=== PATIENT | male | born 1960 | race Two or more races ===

== ENCOUNTER 2017-02-16 23:40 | Emergency (ER) | payer SELFPAY ==
[~2017-02-16] VITALS: Ht 154.9 cm; Wt 63.5 kg
[2017-02-17] VITALS: BP 131/95
[2017-02-17 01:30] VITALS: BP 128/79
[2017-02-17] MEDS ORDERED: IBUPROFEN600 MG ORAL (01:36)
--- NOTE | 2017-02-17 01:37 | Emergency Room Report ---
History of Present Illness General Chief Complaint: Upper Extremity Injury Source: Patient, EMS Present Illness HPI Is a 56-year-old male who is right-hand dominant. He is also an alcoholic. He drinks every day. He said he fell 5 days ago. Now complaining of left arm pain. It starts from the wrist and radiating up. No other injury. Did not pass out. Worse with movement. No nausea no vomiting. He came by EMS. Pain is 7/10. Allergies: Coded Allergies: No Known Allergies (Unverified , 02/16/17) Patient History Past Medical History: none Past Surgical History: none Pertinent Family History: none Social History: Reports: alcohol use, Denies: smoking Immunizations: UTD Reviewed Nursing Documentation: PMH: Agreed, PSxH: Agreed Nursing Documentation-PMH Hx Hypertension: Yes Review of Systems Eye: Denies: blurred vision, eye pain ENT: Denies: ear pain, nose congestion, throat swelling Respiratory: Denies: cough, shortness of breath Cardiovascular: Denies: chest pain, palpitations Gastrointestinal: Denies: abdominal pain, diarrhea, nausea, vomiting Musculoskeletal: Reports: joint pain, Denies: back pain Skin: Denies: rash Neurological: Denies: headache, numbness Endocrine: Denies: increased thirst, increased urine Hematologic/Lymphatic: Denies: easy bruising All Other Systems: negative except mentioned in HPI Physical Exam Vital Signs Date Time Temp Pulse Resp B/P Pulse Ox O2 Delivery O2 Flow Rate FiO2 02/16/17 23:34 102 18 133/97 96 vitals normal. Sp02 EP Interpretation: reviewed, normal General Appearance: well appearing, no apparent distress, alert Head: normocephalic, atraumatic Eyes: bilateral eye EOMI, bilateral eye PERRL ENT: hearing grossly normal, normal pharynx Neck: full range of motion, supple, no meningismus Respiratory: chest non-tender, lungs clear, normal breath sounds Cardiovascular #1: regular rate, rhythm, no murmur Gastrointestinal: normal bowel sounds, non tender, no mass, no organomegaly, no bruit, non-distended Musculoskeletal: back normal, gait/station normal, other - left wrist with edema and TTP distally. NVI Psychiatric: mood/affect normal Skin: warm/dry Procedures Splinting Splinting : Consent: Verbal Location: left wrist Splint: volar Pre-Proc Neuro Vasc Exam: normal Post-Proc Neuro Vasc Exam: normal Patient Tolerated: Well Complications: None Medical Decision Making Diagnostic Impression: Primary Impression: Closed fracture of distal end of left ulna Qualified Codes: S52.602A - Unspecified fracture of lower end of left ulna, initial encounter for closed fracture Additional Impression: Alcohol abuse ER Course She presents with a fall and the distal ulnar fracture. No evidence of dislocation. No evidence of displacement. Patient splinted. We'll discharge home. He does not want any pain medication. Other X-Ray Diagnostic Results Other X-Ray Diagnostic Results : X-Ray Ordered: Left wrist x-rays Date: February 17, 2017 Time: 01:36 EP Interpretation: Yes Findings: no dislocation, other - Distal ulnar fracture. Last Vital Signs Date Time Temp Pulse Resp B/P Pulse Ox O2 Delivery O2 Flow Rate FiO2 02/16/17 23:34 102 18 133/97 96 Status: improved Disposition: HOME, SELF-CARE Condition: Stable Scripts Ibuprofen* (MOTRIN*) 600 Mg Tablet 600 MG ORAL THREE TIMES A DAY, #30 TAB 0 Refills Prov: EKATERINA LÓPEZ M.D. 02/17/17 Referrals: NOT CHOSEN [facility]/,REFERRING (PCP) Patient Instructions: FRACTURE, Upper Extremity Additional Instructions: Followup with your DrSkinny within 7 days for referral to see an orthopedic Dr. Return if symptom worsen. No PE use of right hand until cleared orthopedic EKATERINA Swann M.D. February 17, 2017 01:37
[2017-02-17 01:45] VITALS: BP 128/79
--- NOTE | 2017-02-17 08:28 | Diagnostic Imaging Report ---
Indications: Fall, left wrist injury and pain Technique: 3 views left wrist Findings: Comparison: None Suboptimal positioning limits evaluation. There is a transverse fracture through the distal ulnar metadiaphyseal junction with mild ulnar angulation. Adjacent periosteal callus formation and soft tissue swelling are present. Fracture does not obviously extend to the distal articular surface. No additional fracture, dislocation, joint space widening, soft tissue gas or foreign body, or other acute change identified. IMPRESSION: Distal ulnar fracture as described with partial healing
== END 2017-02-17 01:45 | disposition home or self-care (01) ==
LOC: EDBD 23:40 → EMR 02-17 00:08
DX: S52.602A Unspecified fracture of lower end of left ulna, initial encounter for closed fracture (principal); F10.10 Alcohol abuse, uncomplicated; I10 Essential (primary) hypertension; W19.XXXA Unspecified fall, initial encounter; Y93.9 Activity, unspecified; Y92.9 Unspecified place or not applicable
CPT/HCPCS: 29260; 99283

== ENCOUNTER 2017-05-19 20:54 | Emergency (ER) | payer SELFPAY ==
[~2017-05-19] VITALS: Ht 167.6 cm; Wt 59.0 kg
[~2017-05-19 20:54] MED LIST: IBUPROFEN600 MG ORAL
--- NOTE | 2017-05-19 21:11 | Emergency Room Report ---
History of Present Illness General Chief Complaint: Multiple Trauma/Fall Source: Patient Present Illness HPI This is a 56-year-old male who presented after increased facial pain after a fall. Patient reported having injury to his face. He stated he was drinking alcohol earlier in the day. History is limited by patient's mental status. Allergies: Coded Allergies: No Known Allergies (Unverified , 02/16/17) Patient History Past Medical History: see triage record Reviewed Nursing Documentation: PMH: Agreed, PSxH: Agreed Nursing Documentation-PMH Past Medical History: No Stated History Hx Hypertension: Yes Review of Systems All Other Systems: negative except mentioned in HPI Physical Exam Vital Signs Date Time Temp Pulse Resp B/P Pulse Ox O2 Delivery O2 Flow Rate FiO2 05/19/17 20:51 97.5 65 16 98 Room Air General Appearance: well appearing, no apparent distress, alert, GCS 15, Chronically Ill Head: other - forehead abrasion ENT: other - lip swelling, superficial laceration, upper teeth missing, no active bleeding to laceration Neck: normal inspection Respiratory: normal inspection, chest non-tender, lungs clear Cardiovascular #1: normal inspection, regular rate, rhythm Gastrointestinal: normal inspection, normal bowel sounds, non tender, soft Musculoskeletal: normal inspection, back normal Neurologic: normal inspection, alert, oriented x3, responsive, 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 Differential diagnosis included was not limited to neck fracture, CVA, close head injury, syncopal episode, basilar ischemia. CT of the head was ordered due to patient's recent trauma. A CT the head showed atrophic changes. There is no evident fracture or hemorrhage. X- ray of the left upper extremity had 2 view interpreted by me showed a healing fracture to the distal ulna. The patient was noted to have increased pain is given Tylenol. The patient given a tetanus vaccine. antibiotic ointment was applied to the patient's abrasions laceration to the face. Last Vital Signs Date Time Temp Pulse Resp B/P Pulse Ox O2 Delivery O2 Flow Rate FiO2 05/19/17 20:51 97.5 65 16 98 Room Air Status: improved Disposition: HOME, SELF-CARE Condition: Stable Ky Guadarrama May 19, 2017 21:11
[2017-05-19] MEDS ORDERED: Tetanus/Diptheria/Pertussis Vaccine 0.5ml Syr IM ONE (21:15)
[2017-05-19 22:25] VITALS: BP 130/70
[2017-05-20] MEDS ORDERED: Bacitracin Oint UD TOPIC ONE (00:30)
[2017-05-20 02:29] VITALS: BP 126/71
[2017-05-20] MEDS ORDERED: LORazepam 1mg tab ORAL ONE (03:00)
[2017-05-20 06:10] VITALS: BP 114/82
[2017-05-20] MEDS ORDERED: Thiamine HCl 100 MG in D5W 55 ML IVPB ONE (06:15)
[2017-05-20] MEDS ORDERED: Thiamine HCl 100mg/ml 2 ml Inj ONE (06:23)
[2017-05-20 07:05] LABS: MEAN CORPUSCULAR VOLUME 106 FL (80-99); MEAN PLATELET VOLUME 6.3 FL (6.5-10.1); PLATELET COUNT 71 K/UL (150-450); RED BLOOD COUNT 2.99 M/UL (4.70-6.10); RED CELL DISTRIBUTION WIDTH 15.9 % (11.6-14.8); WHITE BLOOD COUNT 5.3 K/UL (4.8-10.8)
[2017-05-20 07:10] LABS: ALANINE AMINOTRANSFERASE 12 U/L (3-41); ALBUMIN/GLOBULIN RATIO 0.7 (1.0-2.7); ANION GAP 11 (5-15); ASPARTATE AMINO TRANSFERASE 50 U/L (5-40); CALCIUM 8.2 mg/dL (8.6-10.2); CARBON DIOXIDE 25 mEQ/L (20-30); CHLORIDE 106 mEQ/L (98-107); CREATININE 0.4 mg/dL (0.7-1.2); GLOMERULAR FILTRATION RATE > 60 mL/min (>60); HEMOLYSIS 3; SODIUM 142 mEQ/L (135-145); TOTAL PROTEIN 6.8 g/dL (6.6-8.7)
[2017-05-20 07:22] LABS: BILIRUBIN,DIRECT 1.1 mg/dL (0.1-0.3)
[2017-05-20] MEDS ORDERED: chlordiazePOXIDE 25mg Cap ORAL ONE (07:30)
[2017-05-20 07:52] LABS: BAND NEUTROPHILS % (MANUAL) 0 % (0-8); BASOPHILS % (MANUAL) 0 % (0-2); EOSINOPHILS % (MANUAL) 0 % (0-3); HYPOCHROMASIA 1+; LYMPHOCYTES % (MANUAL) 48 % (20-45); NEUTROPHILS % (MANUAL) 44 % (45-75); PLATELET ESTIMATE DECREASED; PLATELET MORPHOLOGY NORMAL; TEAR DROP CELLS 1+; TOTAL CELLS COUNTED 100
[2017-05-20 07:53] LABS: ANISOCYTOSIS 1+; SCHISTOCYTES 1+; TARGET CELLS 1+
--- NOTE | 2017-05-20 09:15 | Diagnostic Imaging Report ---
Indication: Left forearm pain Technique: XRAY FOREARM 2 VIEWS LEFT Comparison: None Findings: There is a chronic appearing fracture of the distal ulna. There is osteopenia. Soft tissues are grossly unremarkable. Examination is not optimized for evaluation of the elbow or wrist. Impression: Chronic appearing distal ulnar fracture. Clinical correlation recommended. Osteopenia.
[2017-05-20 09:38] VITALS: BP 123/83
--- NOTE | 2017-05-20 09:38 | Diagnostic Imaging Report ---
Indication: Facial pain Technique: CT maxillofacial was performed utilizing automated exposure control without intravenous contrast material. Axial and coronal images were generated. CT dose: Total DLP 577 mGycm; CTDI vol 28.2 mGy Comparison: None Findings: There is no displaced fracture. The orbits appear intact. There is no mandibular fracture. Pterygoid plates are intact. There is mild mucosal thickening of the left maxillary sinus. No paranasal sinus air-fluid levels are identified. Dental disease is noted with multiple dental caries and periapical lucency suggestive of endobronchial disease. Left anterior maxillary alveolar ridge 1.8 cm expansile cystic lesion is seen with an air-fluid level. Impression: No displaced acute fracture. Dental disease. Approximately 1.8 cm expansile cystic lesion involving the left anterior maxillary alveolar ridge with air-fluid level. Differential considerations include but not limited to dentigerous cyst, periapical radicular cyst or odontogenic keratocyst versus less likely neoplasm such as ameloblastoma. Air-fluid level may suggest breech of cortex in communication with the oral cavity versus infection. Further evaluation recommended. Findings are concordant with the preliminary report. The CT scanner at [facility] is accredited by the [employer] and the scans are performed using protocols designed to limit radiation exposure to as low as reasonably achievable to attain images of sufficient resolution adequate for diagnostic evaluation.
--- NOTE | 2017-05-20 09:41 | Diagnostic Imaging Report ---
Indication: Head pain/trauma Technique: Continuous helical CT scanning of the head was performed utilizing automated exposure control without intravenous contrast material. Axial and coronal reconstructions were obtained. Comparison: None available CT dose: Total DLP 1337 mGycm; CTDI vol 70.4 mGy Findings: There is no acute intracranial hemorrhage, mass effect or cortical edema. The ventricles, cisterns and sulci are prominent consistent with atrophy. Mild periventricular hypoattenuation is seen, a nonspecific finding. The posterior fossa and fourth ventricle are unremarkable. Sellar and suprasellar regions are grossly unremarkable. Visualized mastoid air cells and paranasal sinuses are unremarkable. A left calvarium are sclerotic focus measures 7 mm. Impression: No evidence of acute intracranial hemorrhage, mass effect or cortical edema. MRI may be obtained for more sensitive evaluation as clinically indicated. Atrophy and nonspecific periventricular hypoattenuation suggestive of chronic ischemic microvascular changes. Approximately 7 mm sclerotic focus of the left parietal calvarium. Although this could represent a bone island, other etiologies are not completely excluded. Consider bone scan for further evaluation. The CT scanner at [facility] is accredited by the [employer] and the scans are performed using protocols designed to limit radiation exposure to as low as reasonably achievable to attain images of sufficient resolution adequate for diagnostic evaluation.
[2017-05-20 09:45] VITALS: BP 123/83
== END 2017-05-20 09:46 | disposition home or self-care (01) ==
LOC: EDBD 20:54 → EMR 21:31
DX: S00.83XA Contusion of other part of head, initial encounter (principal); F10.10 Alcohol abuse, uncomplicated; W19.XXXA Unspecified fall, initial encounter; Y93.9 Activity, unspecified; Y92.9 Unspecified place or not applicable; I10 Essential (primary) hypertension; M79.632 Pain in left forearm; M85.832 Other specified disorders of bone density and structure, left forearm; K08.89 Other specified disorders of teeth and supporting structures
CPT/HCPCS: 36415; 70450; 70486; 73090; 80053; 82248; 85007; 85025; 90471; 90715; 96361; 96372; 96374; 99284; G0480; 80329

== ENCOUNTER 2018-02-24 23:42 | Emergency (ER) | payer SELFPAY ==
[~2018-02-24] VITALS: Ht 165.1 cm; Wt 54.4 kg
[2018-02-25 01:29] VITALS: BP 106/80
[2018-02-25] MEDS ORDERED: IBUPROFEN600 MG ORAL (01:39)
[2018-02-25] MEDS ORDERED: DOXYCYCLINE MO100 MG ORAL (01:39)
--- NOTE | 2018-02-25 01:40 | Emergency Room Report ---
History of Present Illness General Chief Complaint: Lower Extremity Injury Source: Patient, EMS Present Illness HPI Is a 57-year-old male who has a history of previous ankle surgery. He also is homeless and alcoholic. He presents with chief complaint of right leg pain and swelling. Onset for last 4 days. No trauma that he remember. No fever chills. worse with walking. Denies any other complaint. Pain is 7 out of 10. Allergies: Coded Allergies: No Known Allergies (Unverified , 02/16/17) Patient History Past Medical History: see triage record, old chart reviewed Past Surgical History: other Pertinent Family History: none Social History: Reports: alcohol use Immunizations: other Reviewed Nursing Documentation: PMH: Agreed; PSxH: Agreed Nursing Documentation-PMH Hx Hypertension: Yes Review of Systems Eye: Denies: eye pain, blurred vision ENT: Denies: ear pain, nose congestion, throat swelling Respiratory: Denies: cough, shortness of breath Cardiovascular: Denies: chest pain, palpitations Gastrointestinal: Denies: abdominal pain, diarrhea, nausea, vomiting Musculoskeletal: Reports: muscle pain; Denies: back pain, joint pain Skin: Denies: rash Neurological: Denies: headache, numbness Endocrine: Denies: increased thirst, increased urine Hematologic/Lymphatic: Denies: easy bruising All Other Systems: negative except mentioned in HPI Physical Exam Vital Signs Date Time Temp Pulse Resp B/P (MAP) Pulse Ox O2 Delivery O2 Flow Rate FiO2 02/24/18 23:40 98.5 102 18 106/80 100 Room Air 98.4 Sp02 EP Interpretation: reviewed, normal General Appearance: well appearing, no apparent distress, alert Head: normocephalic, atraumatic Eyes: bilateral eye PERRL, bilateral eye EOMI ENT: hearing grossly normal, normal pharynx Neck: full range of motion, supple, no meningismus Respiratory: chest non-tender, lungs clear, normal breath sounds Cardiovascular #1: regular rate, rhythm, no murmur Gastrointestinal: normal bowel sounds, non tender, no mass, no organomegaly, no bruit, non-distended Musculoskeletal: back normal, gait/station normal, normal range of motion, other - Right lower extremity: There is diffuse tenderness and edema. Pulses normal. Mildly warm to the touch. Neurologic: alert, oriented x3 Psychiatric: mood/affect normal Skin: warm/dry Medical Decision Making Diagnostic Impression: Primary Impression: Cellulitis Qualified Codes: L03.115 - Cellulitis of right lower limb Additional Impressions: Leg pain, right Alcohol abuse ER Course patient presents with extremity edema and pain. No evidence of any fracture. No new fracture. Hardware intact. No DVT. This may be early cellulitis. This may be contusion from him falling on it from his intoxication. Other X-Ray Diagnostic Results Other X-Ray Diagnostic Results #1: X-Ray ordered: x-rays right ankle # of Views/Limited Vs Complete: 3 View Indication: Pain EP Interpretation: Yes Interpretation: no dislocation, no fractures, other - osteoporosis. Soft tissuswelling. Chronic operative changes Impression: No acute disease Electronically Signed by: Emmett Zepeda MD Other X-Ray Diagnostic Results #2: X-Ray ordered: xrays, left foot # of Views/Limited Vs Complete: 3 View Indication: Pain EP Interpretation: Yes Interpretation: no dislocation, no fractures, other - STS. post op changes. 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 02/25/18 Doxycycline Monohydrate* (DOXYCYCLINE MONOHYDRATE*) 100 Mg Capsule 100 MG ORAL Q12H, #14 CAP 0 Refills Prov: EMMETT ZEPEDA M.D. 02/25/18 Referrals: NOT CHOSEN [facility]ENDE[facility]/,REFERRING (PCP) Additional Instructions: Elevate leg. Stop using alcohol. Follow-up with your doctor in 2-3 days. Return if worse. EMMETT ZEPEDA M.D. February 25, 2018 01:40
--- NOTE | 2018-02-25 08:48 | Diagnostic Imaging Report ---
Indication: Reason For Exam: PAIN Technique: Right foot, 3 views Comparison: None. Findings: There is diffuse soft tissue swelling. Bones are osteopenic. There is a bony density anterior to the ankle joint. No fracture. No bone destruction. Hardware is present in the ankle from previous internal fixation of ankle fracture. Impression: Evidence of previous fracture with internal fixation of the ankle. Bony density anterior to the ankle joint. Possibility of a loose body is not excluded. Soft tissue swelling.
--- NOTE | 2018-02-25 08:52 | Diagnostic Imaging Report ---
Indication: Reason For Exam: PAIN Technique: XRAY Ankle Compl Min 3v R Comparison: None. Findings: Hardware is present in the ankle from previous internal fixation. There is diffuse soft tissue swelling. No definite acute fracture. No bone destruction. Impression: Previous ankle fracture with internal fixation. Diffuse soft tissue swelling.
--- NOTE | 2018-02-27 09:33 | Diagnostic Imaging Report ---
APPROVED REPORT CPT Code: 93951 Present Symptoms Lower Extremity Pain: Right RIGHT LEG: Venous imaging reveals a patent deep venous system. There is no evidence of thrombus within the femoral, popliteal or tibial segments. The greater saphenous vein is also within normal limits. Doppler indicates normal spontaneous flow within these segments.Thigh/calf area difficult to scan.
== END 2018-02-25 02:30 | disposition home or self-care (01) ==
LOC: EDBD 23:42 → EMR 02-25 00:25
DX: L03.115 Cellulitis of right lower limb (principal); F10.10 Alcohol abuse, uncomplicated; M79.604 Pain in right leg; I10 Essential (primary) hypertension; Z59.0 Homelessness
CPT/HCPCS: 93971; 99284